=== PATIENT | male | born 1990 ===

== ENCOUNTER 2021-03-01 17:17 | Emergency (ER) | payer SELFPAY ==
[2021-03-01 19:18] LABS: BILIRUBIN NEGATIVE (NEGATIVE); BLOOD NEGATIVE Ery/uL (NEGATIVE); CLARITY CLEAR (CLEAR); COLOR YELLOW (YELLOW); GLUCOSE (U) NORMAL (NORMAL); LEUKOCYTES NEGATIVE Leu/uL (NEGATIVE); NITRITE NEGATIVE (NEGATIVE); PROTEIN NEGATIVE (NEGATIVE); SPECIFIC GRAVITY >=1.030 (1.001-1.030)
[2021-03-01] MEDS ORDERED: PREDNISONE 20MG20 MG PO (19:48)
[2021-03-01] MEDS ORDERED: CYCLOBENZAPRINE10 MG PO (19:48)
== END 2021-03-01 20:00 | disposition home or self-care (01) ==
LOC: FER 17:17
PROVIDERS: Nurse Practitioner Family
DX: S33.5XXA Sprain of ligaments of lumbar spine, initial encounter (principal); S23.3XXA Sprain of ligaments of thoracic spine, initial encounter; V49.40XA Driver injured in collision with unspecified motor vehicles in traffic accident, initial encounter; Y92.410 Unspecified street and highway as the place of occurrence of the external cause
CPT/HCPCS: 72128; 72131; 81003